=== PATIENT | male | born 1975 | race Caucasian/White ===

== ENCOUNTER 2022-11-17 19:28 | Inpatient (IN) ==
[2022-11-17] MEDS ORDERED: Thiamine 100 MG/ML 2 ml VIAL 100 MG, Folic Acid IV 1 MG, Multiple Vitamin IV ADULT 10 M... IV ONE (19:51)
[2022-11-17] MEDS ORDERED: levETIRAcetam 1000MG IVPREMIX 1,000 MG/100 ML BAG IVPB ONE (19:52)
[2022-11-17] MEDS ORDERED: levETIRAcetam IV 1,500 MG in NS 0.9% 100 ml BAG 100 ML IVPB ONE (19:53)
[2022-11-17 20:02] LABS: INR 1.15 (0.88-1.18)
[2022-11-17] MEDS ORDERED: LORazepam 2 mg VIAL 1 ml ONE (20:03)
[2022-11-17] MEDS ORDERED: Lorazepam PYXIS KEY PRN ×3 (20:04→21:06)
[2022-11-17] MEDS ORDERED: LORazepam 2 mg VIAL 1 ml IV PUSH ONE ×2 (20:04→20:30)
[2022-11-17 20:07] LABS: ALT 16 U/L (7-52); AST 17 U/L (13-39); Albumin 3.9 g/dL (3.2-5.2); Albumin/Globulin Ratio 1.4 (1-3); Alkaline Phosphatase 63 U/L (35-149); Anion Gap 7 mmol/L (2-16); Blood Urea Nitrogen 15 mg/dL (6-24); CO2 Carbon Dioxide 25 mmol/L (22-32); Calcium 8.8 mg/dL (8.6-10.3); Chloride 103 mmol/L (101-111); Globulin 2.7 g/dL (2-4); Glucose 187 mg/dL (70-100); Magnesium 1.7 mg/dL (1.9-2.7); Potassium 3.9 mmol/L (3.5-5.0); Sodium 135 mmol/L (135-145); Total Protein 6.6 g/dL (6.4-8.9); eGFR CKD-EPI 82.3 (>60)
[2022-11-17 20:31] LABS: Alcohol, S < 13 mg/dL (<13)
[2022-11-17 20:34] LABS: ABS Basophils 0.1 10^3/uL (0.0-0.1); ABS Eosinophils 0.1 10^3/uL (0.0-0.5); ABS Lymphocytes 2.3 10^3/uL (1.0-4.8); ABS Monocytes 0.5 10^3/uL (0.0-1.1); ABS Nucleated RBC 0.01 10^3/ul; Eosinophil % 0.9 %; Hematocrit 46.6 % (38-53); Hemoglobin 15.4 g/dL (13.2-16.3); Lymphocyte % 33.2 %; Mean Corpuscular Hemoglobin 29.4 pg (27-33); Mean Corpuscular Volume 89.1 fL (80-97); Mean Platelet Volume 9.5 fL (7.5-11.2); Nucleated Red Blood Cells % 0.1 /100 WBC (0.0-0.4); Platelet Count 245 10^3/uL (150-450); Red Blood Count 5.23 10^6/uL (4.06-5.63); Red Cell Distribution Width 13.3 % (12-17); White Blood Count 6.9 10^3/uL (3.6-10.2)
[2022-11-17] MEDS ORDERED: Ondansetron 4 mg VIAL 2 MG/ML 2 ml VIAL IV PRN (21:03)
[2022-11-17] MEDS ORDERED: LORazepam 2 mg VIAL 1 ml IV PUSH PRN (21:06)
[2022-11-17] MEDS ORDERED: NS 0.9% 1000 ml BAG 1,000 ML IV SCH (21:15)
[2022-11-17] MEDS ORDERED: Valproic Acid IV 100 MG/ML 5 ML VIAL (500 MG) IVPB ONE (21:21)
[2022-11-17] MEDS ORDERED: Enoxaparin 40 MG/0.4 ML SYR SUBCUT SCH (22:00)
[2022-11-17] MEDS ORDERED: Valproic Acid IV 1,500 MG in NS 0.9% 100 ml BAG 100 ML IVPB ONE (22:00)
[2022-11-17] MEDS ORDERED: Magnesium Sulfate IV 1GM/100ML 1 GM/100 ML BAG IV ONE (22:38)
[2022-11-18 05:25] LABS: Hematocrit 44.2 % (38-53); Hemoglobin 14.5 g/dL (13.2-16.3); Mean Corpuscular Hemoglobin 29.5 pg (27-33); Mean Corpuscular Hgb Conc 32.8 g/dL (31-36); Mean Corpuscular Volume 89.8 fL (80-97); Red Blood Count 4.93 10^6/uL (4.06-5.63); Red Cell Distribution Width 13.1 % (12-17); White Blood Count 9.5 10^3/uL (3.6-10.2)
[2022-11-18 05:40] LABS: Calcium 7.4 mg/dL (8.6-10.3); Creatinine, Serum 0.7 mg/dL (0.67-1.17); Magnesium 1.6 mg/dL (1.9-2.7); Potassium 3.7 mmol/L (3.5-5.0)
[2022-11-18 05:58] LABS: ABS Basophils 0.1 10^3/uL (0.0-0.1); ABS Eosinophils 0.1 10^3/uL (0.0-0.5); ABS Lymphocytes 3.4 10^3/uL (1.0-4.8); ABS Monocytes 0.7 10^3/uL (0.0-1.1); ABS Neutrophils 5.3 10^3/uL (1.5-7.6); ABS Nucleated RBC 0.01 10^3/ul; Eosinophil % 1.1 %; Lymphocyte % 35.7 %; Nucleated Red Blood Cells % 0.1 /100 WBC (0.0-0.4); Platelet Count Platelets clumped. 10^3/uL (150-450)
[2022-11-18] MEDS ORDERED: Magnesium Sulfate 2 gm BAG 2 GM/50 ML BAG IVPB ONE (07:33)
[2022-11-18] MEDS ORDERED: KCL 20 MEQ/100 ML IVPREMIX 20 MEQ/100 ML BAG IV SCH (08:00)
[2022-11-18] MEDS ORDERED: Lidocaine 1% MPF 5 ML VIAL INJ ONE (08:16)
[2022-11-18] MEDS ORDERED: NS 0.9% 1000 ml BAG 1,000 ML IV ONE (08:52)
[2022-11-18] MEDS ORDERED: levETIRAcetam IV 750 MG in NS 0.9% 100 ml BAG 100 ML IVPB SCH (09:00)
[2022-11-18] MEDS ORDERED: Potassium Chlor 20 meq TAB.ER PO ONE (09:22)
[2022-11-18] MEDS ORDERED: Lactated Ringers 1000 ml BAG 1,000 ML IV ONE (11:10)
[2022-11-18 12:07] LABS: Urine Appearance Clear; Urine Bilirubin Negative (Negative); Urine Blood Negative (Negative); Urine Color Yellow; Urine Glucose 1+(50 mg/dL) (Negative); Urine Ketones 1+ (Negative); Urine Nitrite Negative (Negative); Urine Protein Negative (Negative); Urine Specific Gravity 1.023 (1.002-1.030); Urine Urobilinogen Negative (Negative)
[2022-11-18] MEDS ORDERED: Acetaminophen IV 1 GM/100ML 1,000 MG/100 ML BAG IV SCH (12:15)
[2022-11-18 12:22] LABS: Urine Benzodiazepine Screen Presumptive Positive (None Detect); Urine Cannabinoids Screen Presumptive Positive (None Detect); Urine Opiates Screen None Detected (None Detect)
[2022-11-18 13:06] VITALS: BP 127/78
== END 2022-11-18 13:30 | disposition left against medical advice (07) | DRG 53 ==
LOC: ED 19:28 → EDHOLD 21:08 → ICU 22:25
PROVIDERS: ADMIT Student in an Organized Health Care Education/Training Program; ATTEND Internal Medicine

== ENCOUNTER 2023-10-23 10:17 | Observation (INO) ==
[2023-10-23] MEDS ORDERED: ceFAZolin 2 GM in NS PREMIX 2 GM/100 ML BAG IVPB ONE (10:56)
[2023-10-23] MEDS ORDERED: Chlorhexidine MOUTHWASH 0.12% 15 ML UDC ONE (10:56)
[2023-10-23 11:11] LABS: Rapid COVID-19 Molecular Undetected (Undetected)
[2023-10-23] MEDS ORDERED: fentaNYL 100 mcg/2 ml 50 MCG/ML VIAL ONE ×2 (11:28→15:12)
[2023-10-23] MEDS ORDERED: Lidocaine 2% PF 5 ML VIAL ONE (11:28)
[2023-10-23] MEDS ORDERED: Propofol 10 MG/ML 20 ML BTL ONE (11:28)
[2023-10-23] MEDS ORDERED: Rocuronium 50 mg VIAL 10 mg/ml 5 ml VIAL (50 mg) ONE ×2 (11:28→13:56)
[2023-10-23] MEDS ORDERED: Midazolam 2 mg/2 ml VIAL 1 mg/ml 2 ml VIAL (2 mg) ONE (11:29)
[2023-10-23] MEDS ORDERED: ceFAZolin VIAL VIAL ONE (12:31)
[2023-10-23] MEDS ORDERED: Thrombin 5,000 UNITS 1 APPLIC KIT - topical use - TOPICAL ONE (12:31)
[2023-10-23] MEDS ORDERED: Gelfoam 12-7 ADSORBABL SPONGE ONE (12:31)
[2023-10-23] MEDS ORDERED: Lidocaine 1% w EPI 1:100,000 MDV 20 ML VIAL ONE (12:31)
[2023-10-23] MEDS ORDERED: Phenylephrine 40 mcg/mL 10mL (400mcg) SYRINGE ONE (13:56)
[2023-10-23] MEDS ORDERED: Dexamethasone IV 4 MG/ML VIAL 1 ml VIAL ONE (13:59)
[2023-10-23] MEDS ORDERED: Ondansetron 4 mg VIAL 2 MG/ML 2 ml VIAL ONE (13:59)
[2023-10-23] MEDS ORDERED: Morphine 2 MG/ML SYRINGE IV PRN (14:57)
[2023-10-23] MEDS ORDERED: Dextran 70/Hypromellose Tears Eye Drops 15 ml BTL (for Artificials Tears) BOTH EYES PRN (14:57)
[2023-10-23] MEDS ORDERED: Calcium Carb (TUMS) 500 mg CHEW TAB PO PRN (14:57)
[2023-10-23] MEDS ORDERED: Benzocaine/Menthol LOZ MT PRN (14:57)
[2023-10-23] MEDS ORDERED: Senna TAB 8.6 mg TAB PO PRN (14:57)
[2023-10-23] MEDS ORDERED: Ondansetron 4 mg VIAL 2 MG/ML 2 ml VIAL IV PRN (14:57)
[2023-10-23] MEDS ORDERED: Phenol 1.4% Throat Spray BTL MT PRN (14:57)
[2023-10-23] MEDS ORDERED: [UNRECOGNIZED DRUG - REMARK] INTRANASAL PRN (14:59)
[2023-10-23] MEDS: fentaNYL 100 mcg/2 ml 50 MCG/ML VIAL IV SLOW PU ONE (15:15)
[2023-10-23] MEDS ORDERED: Acetaminophen IV 1 GM/100ML 1,000 MG/100 ML BAG IV ONE (15:30)
[2023-10-23] MEDS: Acetaminophen IV 1 GM/100ML 1,000 MG/100 ML BAG IV ONE (15:35)
[2023-10-23] MEDS: Lactated Ringers 1000 ml BAG 1,000 ML IV SCH (17:50)
[2023-10-24 10:50] VITALS: BP 128/80
== END 2023-10-24 11:40 | disposition home or self-care (01) ==
LOC: SSU 10:17 → OR 10:17
PROVIDERS: ADMIT Physician Assistant; ATTEND Neurological Surgery